=== PATIENT | female | born 1955 | race Caucasian/White ===

== ENCOUNTER 2023-02-19 08:50 | Emergency (ER) | payer MEDICARE, SELFPAY ==
[2023-02-19 09:02] VITALS: BP 132/64; PULSE 63; RESP 18; TEMP 36.7; O2SAT 100
--- NOTE | 2023-02-19 09:13 | ED.SKABFB ---
HPI - Skin/Abscess/Foreign Bdy General Chief complaint: Skin/Abscess/Foreign Body Stated complaint: Lt Thigh Abscess Time Seen by Provider: 02/19/23 09:05 Source: patient Mode of arrival: ambulatory Limitations: no limitations History of Present Illness HPI narrative: Vicenta is a 67-year-old female patient presenting to the clinic today with complaints of a possible infected insect bite to the left posterior thigh. She reports that she 1st noticed this 1-2 days ago. Has been messing with the and expressed some blood and pus out of it. She reports that is becoming more swollen and painful. Related Data Allergies Allergy/AdvReac Type Severity Reaction Status Date / Time erythromycin base Allergy Unknown Swelling Verified 02/19/23 09:16 Review of Systems Review of Systems: Pertinent positives per HPI. Patient denies any fever, chills, rash, headache, visual changes, dizziness, cough, runny nose, sore throat, shortness of breath, chest pain, palpitations, nausea, vomiting, diarrhea, constipation, abdominal pain, or any urinary issues. PMFSH Comments At the time of my signature, I reviewed and agree with the nursing past medical, surgical, social, and family history. There is no relevant family history pertinent to the patient complaint. Exam Narrative: General: Well-developed, well nourished, in no apparent distress Head: Normocephalic, atraumatic. Cardio: Regular rate and rhythm, s1 and s2 normal, no murmur appreciated. Resp: Clear to auscultation bilaterally, no rhonchi, rales, wheezing or rubs. Integumentary: [place], warm, and dry, quarter-sized indurated insect bite to the left posterior thigh with redness, swelling, and erythema, tenderness to palpation Course Course Emergency Course: Portions of this record may have been created with voice recognition software. Level of Care: Express Care Visit Vital Signs Vital signs: Vital Signs Temperature 36.7 C 02/19/23 09:02 Pulse Rate 63 02/19/23 09:02 Respiratory Rate 18 02/19/23 09:02 Blood Pressure 132/64 02/19/23 09:02 Pulse Oximetry 100 02/19/23 09:02 Oxygen Delivery Room Air 02/19/23 09:02 Temperature 36.7 C 02/19/23 09:02 Pulse Rate 63 02/19/23 09:02 Respiratory Rate 18 02/19/23 09:02 Blood Pressure 132/64 02/19/23 09:02 Pulse Oximetry 100 02/19/23 09:02 Oxygen Delivery Room Air 02/19/23 09:02 Vital signs reviewed MDM - Skin/Abscess/Foreign Bdy MDM Narrative Medical decision making narrative: At the time of visit patient is resting on the exam table. I suspect patient has an infected insect bite to the left posterior thigh. Prescription for doxycycline was sent to the pharmacy and supportive measures were discussed with the patient and she voiced understanding of discharge instructions and agrees to treatment plan. Differential Diagnosis Differential diagnosis: Likely abscess of skin or subcutaneous tissue, cellulitis and insect bites Discharge Plan Discharge Clinical Impression: Infected insect bite Patient Disposition: Home, Self-Care Condition: Stable Instructions: Antibiotic Form, Insect Bite or Sting (ED) Additional Instructions: Keep area clean and dry May take Tylenol/Motrin as needed for pain Take doxycycline as prescribed May apply warm compresses to the affected for 15 minutes at a time every couple hours Follow-up with your PCP in 3-5 days if symptoms persist or sooner if they worsen Go to the emergency room if you develop high fever not controlled by Tylenol, increasing pain, purulent drainage, increasing redness and swelling, or any other concerns Prescriptions: New doxycycline hyclate 100 mg capsule 100 mg PO BID 7 Days Qty: 14 0RF Follow-up/Referrals: Ramin Edmonds [Other] Time of Disposition: 09:15 Quality NIHSS Nursing Documentation ED NIHSS nursing documentation: reviewed/agree
== END 2023-02-19 09:18 | disposition home or self-care (01) ==
PROVIDERS: Emergency Provider Nurse Practitioner Family
DX: S70.362A Insect bite (nonvenomous), left thigh, initial encounter (principal); L08.9 Local infection of the skin and subcutaneous tissue, unspecified; W57.XXXA Bitten or stung by nonvenomous insect and other nonvenomous arthropods, initial encounter
CPT/HCPCS: 99213; G0463